=== PATIENT | female | born 1975 | race Caucasian/White ===

== ENCOUNTER 2023-08-02 08:00 | Outpatient (REF) | payer BC, SELFPAY ==
[2023-08-08 13:06] LABS: Helicobacter pylori Ag, Feces Negative (Negative)
== END 2023-08-02 08:01 | disposition home or self-care (01) ==
LOC: LBN 08:00
PROVIDERS: PCP Family Medicine; Visit Provider Nurse Practitioner Family
DX: R10.9 Unspecified abdominal pain (principal); R11.2 Nausea with vomiting, unspecified; R19.5 Other fecal abnormalities
CPT/HCPCS: 87338

== ENCOUNTER 2023-08-02 11:59 | Outpatient (CLI) | payer BC, SELFPAY ==
[2023-08-02 11:06] LABS: Absolute Basophil Count 0.01 10^3/uL (0.0-0.2); Absolute Eosinophil Count 0.05 10^3/uL (0.0-0.7); Absolute Monocyte Count 0.24 10^3/uL (0.1-0.8); Absolute Neutrophil Count 2.18 10^3/uL (1.2-6.7); Basophils % 0.3; Eosinophils % 1.4; HCT 41.1 % (36.0-46.0); HGB 13.8 g/dL (11.2-15.7); Lymphocytes % 32.6; MCH 29.7 pg (27.0-33.0); MCHC 33.6 % (32.0-36.0); MCV 89 fL (80-95); MPV 9.5 fL (8.0-11.0); Monocytes % 6.5; Neutrophils % 59.2; Platelet Count 184 10^3/uL (130-400); RBC 4.64 10^6/uL (3.93-5.22); RDW 11.4 % (11.7-14.6); RDW-SD 36.5 fL; WBC 3.68 10^3/uL (4.4-10.8)
[2023-08-02 11:54] LABS: ALT 27 U/L (14-59); AST 12 U/L (15-37); Albumin 4.1 g/dL (3.4-5.0); Alkaline Phosphatase 48 U/L (46-116); BUN 13 mg/dL (7-18); Bilirubin, Total 0.6 mg/dL (0.2-1.0); CREATININE 0.8 mg/dL (0.55-1.02); Calcium 9.5 mg/dL (8.5-10.1); Chloride 106 mmol/L (98-107); Estimated GFR 90.27 (mL/min/1.73m2); Glucose 118 mg/dL (74-106); Lipase 44 U/L (16-77); Potassium 3.8 mmol/L (3.5-5.1); Sodium 142 mmol/L (136-145); Total Protein 7.3 g/dL (6.4-8.2)
== END 2023-08-02 12:00 | disposition home or self-care (01) ==
LOC: LBO 12:00
PROVIDERS: PCP Family Medicine; Visit Provider Nurse Practitioner Family
DX: R10.9 Unspecified abdominal pain (principal)
CPT/HCPCS: 36415; 80053; 83690; 87338; 85025